=== PATIENT | male | born 1975 | race Two or more races ===

== ENCOUNTER 2017-02-13 12:05 | Emergency (ER) | payer OTHER, BC ==
[2017-02-13] MEDS ORDERED: PROPARACAINE HCL 0.5% 300 GTTS/BOT SOLN.DROP ONE (13:01)
== END 2017-02-13 13:41 | disposition home or self-care (01) ==
LOC: ED 12:05
DX: H10.32 Unspecified acute conjunctivitis, left eye (principal)
CPT/HCPCS: 99283; 99282; A9270